=== PATIENT | female | born 2000 | race Hispanic/Latino ===

== ENCOUNTER 2020-12-23 14:04 | Emergency (ER) | payer SELFPAY ==
--- NOTE | ~2020-12-23 | US_ITS ---
EXAMINATION: US OB <=14 wk fetus w TV DATE: 12/23/2020 16:52 INDICATION: Vaginal bleeding. TECHNIQUE: Real-time transabdominal and transvaginal pelvic ultrasound was performed. COMPARISON: None. FINDINGS: TRANSABDOMINAL ULTRASOUND: The uterus measures 8.1 x 4.0 cm. TRANSVAGINAL ULTRASOUND: There is no visible intrauterine gestational sac. The endometrial complex me asures 5 mm in thickness. The right ovary measures 3.1 x 2.1 x 2.2 cm. The left ovary measures 2.5 x 2.0 x 1.7 cm. There is no free fluid in the pelvis. IMPRESSION: 1. No visible intrauterine gestational sac, which may be normal in early . Spontaneous abor tion and ectopic are not excluded. Serial beta-hCGs are recommended. Reviewed, dictated and finalized at location A. IMPRESSION: 1. No visible intrauterine gestational sac, which may be normal in early pregn lyudmila. Spontaneous and ectopic are not excluded. Serial beta- hCGs are recommended.
[2020-12-23 14:17] VITALS: BP 111/55; PULSE 67; RESP 18; TEMP 36; O2SAT 100
--- NOTE | 2020-12-23 14:47 | ED.FEMALEGU ---
HPI - Female Genitourinary General Chief complaint: Vaginal Bleeding Stated complaint: - wants checked Time Seen by Provider: 12/23/20 14:34 Source: patient Mode of arrival: ambulatory Limitations: language barrier History of Present Illness HPI Narrative: 20-year-old female History obtained using [employer] hourly sign language interpreter Patient states she is a G3, P2 with 2 prior deliveries in [place] She has had a positive home test and thinks she is about 8 weeks She has had some light painless vaginal bleeding for 4 days, using at most 4 pads in a day, 2 today, nothing that looked like clots or tissue Related Data Home Medications Medication Instructions Recorded Confirmed No Home Medications 12/23/20 12/23/20 Allergies Allergy/AdvReac Type Severity Reaction Status Date / Time No Known Allergies Allergy Verified 12/23/20 14:24 Review of Systems Review of Systems: All systems reviewed & are unremarkable except as noted in HPI and below Constitutional: Constitutional: Denies chills, Denies fever(s) and Denies headache(s) ENT: Denies headache(s) Cardiovascular: Cardiovascular: Denies dyspnea Respiratory: Respiratory: Denies cough and Denies dyspnea Gastrointestinal: Gastrointestinal: Denies abdominal pain, Denies diarrhea, Denies nausea and Denies vomiting Genitourinary: Genitourinary: Reports abnormal vaginal bleeding, Denies urinary frequency, Denies dysuria and Denies pelvic pain Musculoskeletal: Musculoskeletal: Denies deformity and Denies numbness Integumentary/Breasts: Skin/Breast: Denies wounds PMFSH Social History Social History Gender identity (if verbalized by the patient): Female Exam Const: General: cooperative, no acute distress and alert HENMT: Head: normal to inspection, normocephalic and atraumatic Ears: external ears normal General nose exam: no epistaxis Eyes: Conjunctivae: conjunctivae normal EOM: EOMs intact bilaterally Neck: Neck: normal visual inspection, supple and no JVD Resp: Effort & Inspection: normal respiratory effort and not labored Auscultation: clear to auscultation bilaterally and other (BS =) Cardio: Rate: regular rate Rhythm: regular rhythm Heart sounds: no murmurs GI: GI Palp: Yes Soft to palpation, No Tenderness to palpation present (GI), No Guarding due to palpation present (GI) and No Rebound tenderness present : Other: Cervical os is closed and there is no active bleeding Skin: General skin exam: normal color and no rashes or lesions noted Neuro: General: patient oriented x3 (alert) and moves all extremities Speech: normal speech Extrem: General: normal to inspection and no pedal edema Psych: Affect: normal affect Course Course Emergency Course: d/w dr lynch, if pt calls them tomorrow AM they will get her f/u set up Vital Signs Vital signs: Vital Signs Temperature 36.0 C L 12/23/20 14:17 Pulse Rate 67 12/23/20 14:17 Respiratory Rate 18 12/23/20 14:17 Blood Pressure 111/55 L 12/23/20 14:17 Pulse Oximetry 100 12/23/20 14:17 Temperature 36.0 C L 12/23/20 14:17 Pulse Rate 66 12/23/20 15:44 Respiratory Rate 18 12/23/20 15:44 Blood Pressure 119/61 12/23/20 15:44 Pulse Oximetry 100 12/23/20 15:44 MDM - Female Genitourinary Lab Data Result diagrams: 12/23/20 14:50 Labs: Lab Results 12/23/20 12/23/20 12/23/20 Range/Units 14:50 14:50 14:50 WBC 5.5 (4.5-10.0) K/mm3 RBC 3.98 L (4.2-5.4) M/mm3 Hgb 13.0 (12.0-15.0) g/dL Hct 39.2 (37.0-47.0) % MCV 98.5 (80-100) fl MCH 32.7 (26-34) pg MCHC 33.2 (32-36) g/dl RDW 11.6 (11.5-14.5) % Plt Count 145 L (150-375) k/mm3 MPV 10.4 (7.4-10.4) fl Immature Gran % (Auto) 0.2 (0-0.5) % Neut % (Auto) 58.4 (45.5-73.1) % Lymph % (Auto) 29.0 (18.3-44.2) % Terrell % (Auto) 8.7 H (2.6-8.5) % Eos % (Auto) 3.3
[2020-12-23 15:01] LABS: Basophils Percent Auto 0.4 % (0.2-1.2); Eosinophils Absolute Auto 0.2 K/mm3 (0-0.3); Eosinophils Percent Auto 3.3 % (0-4.4); Hematocrit 39.2 % (37.0-47.0); Immature Granulocyte Absolute 0.01 K/mm3 (0.00-0.031); Immature Granulocyte Percent A 0.2 % (0-0.5); Mean Corpuscular HGB Conc 33.2 g/dl (32-36); Mean Corpuscular Hemoglobin 32.7 pg (26-34); Mean Corpuscular Volume 98.5 fl (80-100); Mean Platelet Volume 10.4 fl (7.4-10.4); Monocytes Absolute Auto 0.5 K/mm3 (0.1-0.6); Monocytes Percent Auto 8.7 % (2.6-8.5); Neutrophils Absolute Auto 3.2 K/mm3 (1.3-6.7); Neutrophils Percent Auto 58.4 % (45.5-73.1); Platelet Count Result 145 k/mm3 (150-375); Red Blood Count 3.98 M/mm3 (4.2-5.4); Red Cell Distribution Width 11.6 % (11.5-14.5); White Blood Count 5.5 K/mm3 (4.5-10.0)
[2020-12-23 15:44] VITALS: BP 119/61; PULSE 66; RESP 18; O2SAT 100
[2020-12-23 18:21] VITALS: BP 118/79; PULSE 70; RESP 15; O2SAT 100
== END 2020-12-23 18:23 | disposition home or self-care (01) ==
PROVIDERS: Emergency Provider Emergency Medicine
DX: O20.0 Threatened abortion (principal); Z3A.01 Less than 8 weeks gestation of pregnancy
CPT/HCPCS: 36415; 76801; 76817; 84702; 85025; 85461; 99284